=== PATIENT | female | born 2000 | race Caucasian/White ===

== ENCOUNTER 2023-07-21 21:21 | Emergency (ER) | payer MEDICAID ==
[~2023-07-21] VITALS: Ht 165.1 cm; Wt 68.0 kg
[2023-07-21 22:23] VITALS: BP 131/80; PULSE 102; RESP 18; TEMP 98.4; O2SAT 97
== END 2023-07-21 22:50 | disposition left against medical advice (07) ==
LOC: ER 21:21
DX: R68.89 Other general symptoms and signs (principal); Z53.21 Procedure and treatment not carried out due to patient leaving prior to being seen by health care provider
CPT/HCPCS: 81025; 99281